=== PATIENT | male | born 1970 | race African-American/Black ===

== ENCOUNTER 2016-12-27 02:52 | Emergency (ER) | payer OTHER ==
[~2016-12-27] VITALS: Ht 162.6 cm; Wt 80.7 kg
[2016-12-27 03:02] VITALS: TEMP 36.7; Ht 162.6 cm; Wt 80.7 kg
[2016-12-27 03:12] VITALS: O2SAT 95
[2016-12-27 03:18] LABS: HEMATOCRIT 42.1 % (42-52); MEAN CELL VOLUME 82.2 fL (80-100); MEAN CORPUSCULAR HEMOGLOBIN 28.3 pg (25-34); MEAN CORPUSCULAR HGB CONC 34.4 g/dl (32-36); MEAN PLATELET VOLUME 10.7 fL (7.4-10.4); PLATELET COUNT 222 K/uL (130-400); RED BLOOD COUNT 5.12 M/uL (4.7-6.1); WHITE BLOOD COUNT 6.16 K/uL (4.8-10.8)
[2016-12-27] MEDS ORDERED: MULT-506 PO (03:18)
[2016-12-27 03:26] LABS: BUN/CREATININE RATIO 7.2 (10-20); CREATININE 1.51 mg/dl (0.60-1.40); POTASSIUM 3.5 mmol/L (3.5-5.1)
[2016-12-27 03:28] LABS: ALB/GLOB RATIO 0.9 (0.9-2)
[2016-12-27 03:30] LABS: INR 1.1 (0.9-1.1); PROTHROMBIN TIME (PATIENT) 11.3 SECONDS (9.0-12.0)
[2016-12-27] MEDS ORDERED: OPTIRAY 320 IV PRN (03:30)
[2016-12-27 03:47] LABS: BASO % 0.5 %; BASO ABS # 0.03 K/uL (0-0.2); COMPLETE YES; EOS % 0.6 %; IG% 0.5 %; LYMPH % 50.6 %; LYMPH ABS # 3.12 K/uL (1.2-3.4); MONO % 10.9 %; NEUT % 36.9 %
[2016-12-27 03:56] LABS: ISTAT CREATININE 1.3 mg/dl (0.6-1.3); ISTAT IONIZED CALCIUM 1.13 mmol/l (1.12-1.32)
[2016-12-27 04:18] LABS: URINE APPEARANCE CLEAR (CLEAR); URINE COLOR DK YELLOW; URINE NITRITE NEG (NEG); URINE SPECIFIC GRAVITY 1.034 (1.000-1.030); UROBILINOGEN NEG (NEG); ZZUR CULT IF INDIC CLEAN CATCH NO
[2016-12-27 04:21] LABS: MANUAL MICROSCOPIC REQUIRED? NO; REVIEW REQ? NO
[2016-12-27 04:22] LABS: URINE BILIRUBIN NEG (NEG)
[2016-12-27 04:46] LABS: BENZODIAZEPINE, URINE NEG (NEG); COCAINE,URINE POS (NEG); PHENCYCLIDINE, URINE NEG (NEG)
[2016-12-27 06:30] VITALS: BP 111/59; PULSE 71; O2SAT 96
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
[2016-12-29 09:25] LABS: COCAINE, URINE >50000 NG/ML (CUTOFF=100)
== END 2016-12-27 06:34 | disposition home or self-care (01) ==
LOC: EDBD 02:52 → C.EDB 02:53
DX: T14.8XXA Other injury of unspecified body region, initial encounter (principal); F14.10 Cocaine abuse, uncomplicated; R51 Headache; M54.2 Cervicalgia; R10.9 Unspecified abdominal pain; Z79.899 Other long term (current) drug therapy; V68.0XXA Driver of heavy transport vehicle injured in noncollision transport accident in nontraffic accident, initial encounter; F17.200 Nicotine dependence, unspecified, uncomplicated

== ENCOUNTER → 2016-12-27 | Outpatient (CLI) | payer OTHER ==
[~2016-12-27] MED LIST: MULT-506 PO
== END | disposition home or self-care (01) ==
LOC: C.LAB 05:09
DX: Z02.83 Encounter for blood-alcohol and blood-drug test (principal)